=== PATIENT | male | born 1955 ===

== ENCOUNTER 2017-04-07 13:59 | Emergency (ER) | payer SELFPAY | END 2017-04-07 16:58 | disposition home or self-care (01) | LOC: ER 13:59 | DX: S93.602A Unspecified sprain of left foot, initial encounter (principal); F17.200 Nicotine dependence, unspecified, uncomplicated; W17.89XA Other fall from one level to another, initial encounter | CPT/HCPCS: 73610-LT; 73630-LT; 99283 ==